=== PATIENT | female | born 1995 | race Caucasian/White ===

== ENCOUNTER 2022-10-08 11:49 | Emergency (ER) | payer OTHER, BC, SELFPAY ==
--- NOTE | ~2022-10-08 | XR_ITS ---
EXAMINATION: XR chest 1V 10/08/2022 13:02 INDICATION: Shortness of breath PROCEDURE: AP portable chest COMPARISON: No prior studies for comparison. FINDINGS: The lungs are clear. The cardiomediastinal silhouette is within normal limits. There are no pleural effusions. There is no pneumothorax suspected. IMPRESSION: 1: NO ACUTE CARDIOPULMONARY DISEASE. Reviewed, dictated and finalized at location A. [employer] LEAD
--- NOTE | 2022-10-08 11:51 | ECG_ITS ---
Measurements Intervals [place] Rate: 61 P: 21 [place]: 156 QRS: -7 QRSD: 83 T: 6 QT: 393 QTc: 398 Interpretive Statements SINUS RHYTHM RSR' IN V1 OR V2, PROBABLY NORMAL VARIANT LOW QRS VOLTAGE IN PRECORDIAL LEADS BORDERLINE T WAVE ABNORMALITY- INFERIOR LEADS BORDERLINE ECG NO PREVIOUS ECG AVAILABLE FOR COMPARISON Electronically Signed On 10-08-2022 15:06:43 HUMAN RESOURCES SPECIALIST by Sage Espinoza D.O.
[2022-10-08 12:30] VITALS: BP 134/88; PULSE 77; RESP 17; TEMP 36.6; O2SAT 100
--- NOTE | 2022-10-08 14:47 | ED.GENADULT ---
HPI - General Adult General Chief complaint: Shortness of Breath/Dyspnea Stated complaint: SOB/CP Time Seen by Provider: 10/08/22 13:25 Source: patient Mode of arrival: ambulatory Limitations: no limitations History of Present Illness HPI narrative: Patient is a 26-year-old female who presents to the ED with report of shortness of breath. Patient reports having shortness of breath for the past 4 days as well as tightness in her midsternal chest. She states the shortness of breath is occasionally aggravated with exertion, but not other times. Occasional pain with taking deep breath. She has a history of childhood asthma, but has not had any issues with this in numerous years. Never had chest pain like this before. Denies fever, chills, BLE pain or edema, palpitations, cough, congestion, rhinorrhea, nausea, vomiting. Review of Systems Review of Systems: CONSTITUTIONAL: Denies fever, chills, or sweats. ENT: Denies rhinorrhea, congestion, sore throat. CARDIOVASCULAR: Reports midsternal chest tightness. Denies palpitations or BLE edema. RESPIRATORY: Reports shortness of breath, occasional HERNANDEZ. Denies cough. GASTROINTESTINAL: Denies abdominal pain, nausea, vomiting, or diarrhea. MUSCULOSKELETAL: Denies BLE pain. All systems reviewed & are unremarkable except as noted in HPI and below PMFSH Past Medical History Medical History (Updated 10/08/22 @ 17:06 by Cici Lowe PA-C) History of asthma Surgical History Surgical History (Updated 10/08/22 @ 14:53 by Cici Lowe PA-C) History of tympanoplasty Social History Social History (Updated 10/08/22 @ 14:53 by Cici Lowe PA-C) Smoking status: Current every day smoker Tobacco type: e-cigarettes/vaping Exam Narrative: GENERAL: Well appearing, morbidly obese, non-toxic, in no acute distress. HEAD: Normocephalic, atraumatic. NECK: Supple. No adenopathy, no masses. RESPIRATORY: Airway patent, respirations nonlabored. Clear to auscultation bilaterally, no rales, rhonchi, wheezing. No focal lung sounds. No splinting. CARDIOVASCULAR: Regular rate and rhythm without murmurs, rubs, or gallops. Peripheral pulses 2+ and equal bilaterally. MUSCULOSKELETAL: Moves all extremities. Strength/ROM intact without gross deformities. No edema. No calf tenderness. SKIN: Warm, dry, normal color. No rashes. NEURO: A&O X3. Speech clear. Cranial nerves II-XII grossly intact. Steady gait. No ataxic movements. PSYCHIATRIC: Appropriate mood and affect. Normal interaction. Course Vital Signs Vital signs: Vital Signs Temperature 97.9 F 10/08/22 12:30 Pulse Rate 77 10/08/22 12:30 Respiratory Rate 17 10/08/22 12:30 Blood Pressure 134/88 10/08/22 12:30 Pulse Oximetry 100 10/08/22 12:30 Oxygen Delivery Room Air 10/08/22 12:30 Temperature 97.9 F 10/08/22 12:30 Pulse Rate 77 10/08/22 12:30 Respiratory Rate 17 10/08/22 12:30 Blood Pressure 134/88 10/08/22 12:30 Pulse Oximetry 100 10/08/22 12:30 Oxygen Delivery Room Air 10/08/22 12:30 Medical Decision Making [facility] Narrative Medical decision making narrative: Patient presented to ED with 4-day history of vague mild shortness of breath, no identifiable triggers. No recent URI sx's. Vitals stable upon arrival. Afebrile. No hypoxia. Clinical exam unremarkable. Chest x-ray without signs of pneumonia, pneumothorax, focal findings. EKG without ischemic changes. Troponin negative. D-dimer WNL, as well as PERC negative, doubt PE. Patient w/o wheezing on exam, lungs clear, no need for breathing Tx. No recent cough, congestion, sore throat, muscle aches, fever, nausea - did not test for COVID/flu. Discussed lab and imaging findings with patient and provided reassurance. Patient has a f/u appointment with her primary care doctor on Thursday. She will be discharged. Given strict reasons to return. She agrees with plan. Discharged in stable condition. Medical Records Medical records
[2022-10-08 15:47] LABS: Basophils Percent Auto 0.4 % (0.2-1.2); Eosinophils Absolute Auto 0.1 K/mm3 (0-0.3); Eosinophils Percent Auto 0.7 % (0-4.4); Hematocrit 45.3 % (37.0-47.0); Hemoglobin 15.1 g/dL (12.0-15.0); Immature Granulocyte Absolute 0.01 K/mm3 (0.00-0.031); Immature Granulocyte Percent A 0.1 % (0-0.5); Lymphocytes Absolute Auto 2.62 K/mm3 (0.9-3.2); Lymphocytes Percent Auto 31.8 % (18.3-44.2); Mean Corpuscular HGB Conc 33.3 g/dl (32-36); Mean Corpuscular Hemoglobin 30.5 pg (26-34); Mean Corpuscular Volume 91.5 fl (80-100); Mean Platelet Volume 9.8 fl (7.4-10.4); Monocytes Absolute Auto 0.5 K/mm3 (0.1-0.6); Monocytes Percent Auto 6.2 % (2.6-8.5); Neutrophils Percent Auto 60.8 % (45.5-73.1); Platelet Count Result 245 k/mm3 (150-375); Red Blood Count 4.95 M/mm3 (4.2-5.4); Red Cell Distribution Width 11.8 % (11.5-14.5); White Blood Count 8.2 K/mm3 (4.5-10.0)
[2022-10-08 15:57] LABS: Alanine Aminotransferase 49 U/L (6-35); Albumin Level 4.4 g/dL (3.5-5.1); Alkaline Phosphatase 55 U/L (38-126); Anion Gap 6 mmol/L (8-16); Aspartate Amino Transferase 43 U/L (14-36); Bilirubin,Total 0.5 mg/dL (0.2-1.3); Blood Urea Nitrogen 12 mg/dL (7-17); Calcium 8.7 mg/dL (8.4-10.2); Carbon Dioxide 27 mmol/L (22-30); Chloride 102 mmol/L (98-107); Estimated CRCL calculation 130 ml/min; Estimated Glomerular Filt Rate > 60; Glucose 83 mg/dL (65-110); Potassium 4.4 mmol/L (3.4-5.0); Sodium 135 mmol/L (137-145)
[2022-10-08 16:04] LABS: D Dimer < 0.27 ug/mL (<0.48)
[2022-10-08 16:09] LABS: Troponin I < 0.012 ng/mL (0.000-0.034)
[2022-10-08 17:25] VITALS: RESP 16
== END 2022-10-08 17:25 | disposition home or self-care (01) ==
PROVIDERS: Emergency Provider Physician Assistant
DX: R06.81 Apnea, not elsewhere classified (principal); R07.89 Other chest pain; Z72.0 Tobacco use; J45.909 Unspecified asthma, uncomplicated
CPT/HCPCS: 36415; 71045; 80053; 84484; 85025; 85380; 93005; 99284

== ENCOUNTER 2023-09-04 23:30 | Emergency (ER) | payer OTHER, SELFPAY ==
[2023-09-04 23:42] VITALS: BP 147/89; PULSE 84; TEMP 36.4; O2SAT 95
--- NOTE | 2023-09-04 23:54 | ED.GENADULT ---
[facility] - General Adult General Chief complaint: Ear Stated complaint: bleeding from ear Time Seen by Provider: 09/04/23 23:40 Source: patient Mode of arrival: ambulatory Limitations: no limitations History of Present Illness HPI narrative: This is a 27-year-old female who presents to the ED with chief complaint of right ear irritation and bleeding. Reports that tonight she noticed some scant blood draining from the right ear. Reports she has had a lot of dark wax recently. Reports that she recently used a camera to try to visualize the ear. She has history of tympanic membrane rupture in the past but does not feel any pain right now. Denies any hearing changes or tinnitus Related Data Allergies Allergy/AdvReac Type Severity Reaction Status Date / Time No Known Allergies Allergy Verified 09/04/23 23:33 Review of Systems Review of Systems: All systems as dictated in [facility] Past Medical History Medical History (Updated 09/05/23 @ 00:05 by Riky Valera PA-C) History of asthma Surgical History Surgical History (Updated 10/08/22 @ 14:53 by Cici Lowe PA-C) History of tympanoplasty Social History Social History (Updated 10/08/22 @ 14:53 by Cici Lowe PA-C) Smoking status: Current every day smoker Tobacco type: e-cigarettes/vaping Exam Narrative: GENERAL: Well-appearing, well-nourished, and in no acute distress. HEAD: Normocephalic, atraumatic. EYES: PERRLA and EOMI. ENT: Right external auditory canal with obvious inflammation. There is scant bloody discharge present. No purulent discharge present. The tympanic membrane is intact. Left ear is benign. Nares clear, no rhinorrhea or epistaxis. Mucous membranes moist. Oropharynx without tonsillar hypertrophy exudate or other lesions. NECK: Supple. No adenopathy or masses. CHEST: No respiratory distress. Clear to auscultation. No wheezes rales or rhonchi HEART: Regular rate and rhythm. No murmur heard. Normal peripheral pulses. ABDOMEN: Soft, nontender, nondistended, normal active bowel sounds. MSK: Normal range of motion. No edema. SKIN: Warm, dry, no rash. NEURO: Alert and oriented x3. No focal deficits. PSYCH: Normal mood and affect. Course Vital Signs Vital signs: Vital Signs Temperature 97.5 F L 09/04/23 23:42 Pulse Rate 84 09/04/23 23:42 Blood Pressure 147/89 H 09/04/23 23:42 Pulse Oximetry 95 09/04/23 23:42 Temperature 97.5 F L 09/04/23 23:42 Pulse Rate 84 09/04/23 23:42 Blood Pressure 147/89 H 09/04/23 23:42 Pulse Oximetry 95 09/04/23 23:42 Medical Decision Making [facility] Narrative Medical decision making narrative: This is a 27-year-old female with chief complaint of right ear irritation. Scant bloody discharge from the right external canal. Tympanic membrane is intact. Vitals are normal. Pain with insertion of the otoscope on exam. Symptoms consistent with otitis externa. Prescription for Ciprodex drops given. Pt will be discharged in stable condition. Return precautions given and supportive measures discussed. Pt is understanding and agreeable with plan for discharge and follow-up with PCP. Vital Signs Vital Signs: Vital Signs Temperature 97.5 F L 09/04/23 23:42 Pulse Rate 84 09/04/23 23:42 Blood Pressure 147/89 H 09/04/23 23:42 Pulse Oximetry 95 09/04/23 23:42 Temperature 97.5 F L 09/04/23 23:42 Pulse Rate 84 09/04/23 23:42 Blood Pressure 147/89 H 09/04/23 23:42 Pulse Oximetry 95 09/04/23 23:42 Discharge Plan Discharge Clinical Impression: Otitis externa Patient Disposition: Home, Self-Care Condition: Stable Instructions: Antibiotic Form Additional Instructions: Your exam today shows evidence of inflammation of the external ear canal. The eardrum is intact. Please take your eardrops for 1 week and follow-up with the ENT doctor. A referral has been given. If you have any new or worsening symptoms please re
== END 2023-09-05 00:25 | disposition home or self-care (01) ==
PROVIDERS: Emergency Provider Physician Assistant
DX: H60.91 Unspecified otitis externa, right ear (principal); F17.219 Nicotine dependence, cigarettes, with unspecified nicotine-induced disorders
CPT/HCPCS: 99283

== ENCOUNTER 2024-02-02 21:05 | Emergency (ER) | payer OTHER, SELFPAY ==
--- NOTE | ~2024-02-02 | XR_ITS ---
EXAMINATION: XR chest 1V portable INDICATION: Shortness of breath TECHNIQUE: Portable AP chest at 2146 hours COMPARISON: 10/08/2022 FINDINGS: The lung volumes are low. There are diffuse opacities throughout all lung zones. No pleural effusion or pneumothorax. The heart size is normal for technique. The visualized osseous structures are unremarkable. IMPRESSION: 1. Diffuse lung disease which could reflect pneumonia and/or pulmonary edema. Reviewed, dictated and finalized at location F.
[2024-02-02 21:07] VITALS: BP 150/103; PULSE 70; RESP 16; TEMP 37; O2SAT 100
[2024-02-02 21:56] LABS: Basophils Percent Auto 0.3 % (0.2-1.2); Eosinophils Percent Auto 0.3 % (0-4.4); Hematocrit 48.1 % (37.0-47.0); Immature Granulocyte Absolute 0.04 K/mm3 (0.00-0.031); Immature Granulocyte Percent A 0.3 % (0-0.5); Lymphocytes Absolute Auto 3.68 K/mm3 (0.9-3.2); Lymphocytes Percent Auto 31.5 % (18.3-44.2); Mean Corpuscular HGB Conc 33.3 g/dl (32-36); Mean Corpuscular Hemoglobin 30.1 pg (26-34); Mean Corpuscular Volume 90.6 fl (80-100); Mean Platelet Volume 9.8 fl (7.4-10.4); Monocytes Absolute Auto 0.7 K/mm3 (0.1-0.6); Monocytes Percent Auto 6.3 % (2.6-8.5); Neutrophils Absolute Auto 7.2 K/mm3 (1.3-6.7); Neutrophils Percent Auto 61.3 % (45.5-73.1); Platelet Count Result 286 k/mm3 (150-375); Red Blood Count 5.31 M/mm3 (4.2-5.4); Red Cell Distribution Width 11.4 % (11.5-14.5); White Blood Count 11.7 K/mm3 (4.5-10.0)
--- NOTE | 2024-02-02 22:04 | PC.NURSE ---
This RN entered room to start IV and administer fluids. Pt refused IV access and fluids, stating I just came here for my breathing, I dont think I need all of that . CHAKA Reyes notified.
[2024-02-02 22:06] LABS: Alanine Aminotransferase 50 U/L (6-35); Albumin Level 4.8 g/dL (3.5-5.1); Alkaline Phosphatase 61 U/L (38-126); Anion Gap 7 mmol/L (4-12); Aspartate Amino Transferase 47 U/L (14-36); Bilirubin,Total 0.4 mg/dL (0.2-1.3); Blood Urea Nitrogen 14 mg/dL (7-17); Calcium 9.9 mg/dL (8.4-10.2); Carbon Dioxide 29 mmol/L (22-30); Chloride 100 mmol/L (98-107); Estimated CRCL calculation 129 ml/min; Estimated Glomerular Filt Rate > 60; Glucose 90 mg/dL (65-110); Potassium 4.3 mmol/L (3.4-5.0); Sodium 136 mmol/L (137-145)
--- NOTE | 2024-02-02 22:21 | ED.SOB ---
HPI - SOB/Dyspnea General Chief Complaint: Shortness of Breath/Dyspnea Stated Complaint: sob and chest pain Time Seen by Provider: 02/02/24 21:20 History of Present Illness HPI Narrative: Patient is a 28-year-old female who presents to the emergency department this evening complaining of shortness of breath. Patient states that she has been having this shortness of breath since Thursday. She states that her boyfriend made dinner that night and the lab he cooked was extremely salty but she aided any ways to to not wanting to hurt his feelings. Patient states that she had some cheesecake as well and while she was eating and did choke on it. She denies any significant past medical history and denies any history of cardiovascular disease. Patient admits to a history of asthma but states that this does not feel like her asthma her albuterol inhaler did not help with the shortness of breath. She is currently denying any current sharp stabbing chest pain, denies any nausea or vomiting, any fevers or chills at home, any abdominal pain, dysuria or hematuria. There are no other modifying, alleviating, or precipitating factors at this time. Related Data Allergies Allergy/AdvReac Type Severity Reaction Status Date / Time No Known Allergies Allergy Verified 02/02/24 21:06 Review of Systems Review of Systems: All systems are reviewed and are negative unless stated otherwise in the HPI. [facility] Past Medical History Medical History History of asthma Surgical History Surgical History History of tympanoplasty Social History Social History Smoking status: Current every day smoker Tobacco type: e-cigarettes/vaping Exam Narrative: General: Alert, awake, afebrile, in no acute distress. HEENT: PERRL, no rhinorrhea, no post nasal drip, oropharynx clear. Neck: Trachea midline, no JVD, no lymphadenopathy. Cardiovascular: Regular rate and rhythm, no murmurs, rubs or gallops, no peripheral edema. Respiratory: Clear to auscultation bilaterally, no tachypnea, no wheezing, no rhonchi, no rubs, no respiratory distress. Abdomen: Soft, nontender, nondistended, no rebound, no guarding, no peritoneal signs. Musculoskeletal: No joint swelling or deformity, normal muscle tone. Skin: No rashes or petechia, no signs of infection. Psychiatric: Alert and oriented, normal behavior and judgment for situation. Neurological: Alert and oriented to person, place, and time. Follows all commands. No focal deficits, speech is clear and fluent. Course Vital Signs Vital signs: Vital Signs Temperature 98.6 F 02/02/24 21:07 Pulse Rate 70 02/02/24 21:07 Respiratory Rate 16 02/02/24 21:07 Blood Pressure 150/103 H 02/02/24 21:07 Pulse Oximetry 100 02/02/24 21:07 Oxygen Delivery Room Air 02/02/24 21:07 Temperature 98.6 F 02/02/24 21:07 Pulse Rate 69 02/02/24 23:33 Respiratory Rate 17 02/02/24 23:33 Blood Pressure 147/89 H 02/02/24 23:33 Pulse Oximetry 100 02/02/24 23:33 Oxygen Delivery Room Air 02/02/24 22:29 MDM - SOB/Dyspnea MDM Narrative Medical decision making narrative: The patient was evaluated by myself in the emergency department. History is obtained from patient who is an independent historian and physical exam was performed. External medical records were reviewed at this time. IV was established and pertinent tests were ordered. Laboratory results obtained revealing a white blood cell count of 11.7, AST of 47, ALT of 50 otherwise unremarkable. Imaging studies obtained included CXR which was independently interpreted by me revealing diffuse opacities consistent with pneumonia versus pulmonary edema, which is pending final radiology interpretation. Differential diagnosis considerations include acute viral syndrome including COVID/influe
[2024-02-02 22:29] VITALS: O2SAT 99
[2024-02-02 22:35] LABS: Influenza A QL RT-PCR Negative (Negative); Influenza B QL RT-PCR Negative (Negative); RSV RNA, RT-PCR Negative (Negative); SARS-CoV-2 RNA PCR Negative (Negative)
[2024-02-02 22:47] LABS: NT Pro B Type Natriuretic Pept 109 pg/mL (19.9-100); Troponin I < 0.012 ng/mL (0.000-0.034)
[2024-02-02 23:33] VITALS: BP 147/89; PULSE 69; RESP 17; O2SAT 100
== END 2024-02-02 23:34 | disposition home or self-care (01) ==
PROVIDERS: Emergency Provider Emergency Medicine
DX: J18.9 Pneumonia, unspecified organism (principal); R06.02 Shortness of breath; Z20.822 Contact with and (suspected) exposure to COVID-19; J45.909 Unspecified asthma, uncomplicated
CPT/HCPCS: 36415; 71045; 80053; 83880; 84484; 85025; 87637; 99284

== ENCOUNTER 2024-04-13 11:38 | Emergency (ER) | payer OTHER, SELFPAY ==
--- NOTE | ~2024-04-13 | XR_ITS ---
EXAMINATION: XR chest 2V DATE: 04/13/2024 12:08 INDICATION: Palpitations. Nonspecific chest pain. TECHNIQUE: Frontal and lateral views of the chest were obtained. COMPARISON: Chest single view 02/02/2024 FINDINGS: There is no pneumonia, pleural effusion, or pneumothorax. The heart size is normal. IMPRESSION: 1. No acute cardiopulmonary disease. Reviewed, dictated and finalized at location A.
--- NOTE | 2024-04-13 11:42 | ECG_ITS ---
[facility] [address] Test Date: 2024-04-13 Pat Name: Kristen Jamil Department: Room: Gender: F Chemists: : 1995 Requested By: Cruzito Patel Order Number: [id number] Dahiana MD: Twila Tamez M.D. Measurements Intervals [place] Rate: 85 P: 24 [place]: 157 QRS: -13 QRSD: 85 T: 4 QT: 356 QTc: 424 Interpretive Statements SINUS RHYTHM No previous ECG available for comparison Electronically Signed On 04-13-2024 14:16:12 CDT by Twila Tamez M.D.
[2024-04-13 11:43] VITALS: BP 149/89; PULSE 87; RESP 20; TEMP 36.4; O2SAT 100
[2024-04-13 11:51] VITALS: PULSE 82
--- NOTE | 2024-04-13 11:54 | ED.ARRPALP ---
HPI - Arrhythmia/Palpitations General Chief Complaint: Arrhythmia/Palpitations Stated Complaint: SOB, heart palpitations Time Seen by Provider: 04/13/24 11:44 History of Present Illness HPI narrative: 28-year-old morbidly obese female history of hypothyroidism recently started on Monurol for weight loss presents to the emergency room for evaluation of palpitations. Patient states she has been experiencing 4-5 minutes of palpitations once daily for the last 4 days. States the palpitations normally occur when she is active. Patient states that she does not snore or has been told she has sleep apnea. Patient denies any chest pain or shortness of breath. Denies dizziness or lightheadedness. Denies nausea vomiting. Denies fevers. Denies of adjusting energy drinks. No recreational drug use except for marijuana. It is not ingest EtOH. Related Data Allergies Allergy/AdvReac Type Severity Reaction Status Date / Time doxycycline Allergy Rash Verified 04/13/24 11:58 Review of Systems Review of Systems: ROS unremarkable except for noted in HPI. [facility] Past Medical History Medical History History of asthma Surgical History Surgical History History of tympanoplasty Social History Social History Smoking status: Current every day smoker Tobacco type: e-cigarettes/vaping Exam Narrative: GENERAL: Well-appearing, well-nourished, no physical limitations, and in no acute distress. HEAD: Normocephalic, atraumatic. EYES: Conjunctivae normal, PERRLA and EOMI. CHEST: Clear to auscultation. No respiratory distress. No wheezes rales or rhonchi. HEART: Regular rate and rhythm. No murmur heard. Normal peripheral pulses. EXTREMITIES: Normal range of motion. No edema. No clubbing or cyanosis SKIN: Warm, dry, no rash. No noted wounds NEURO: No focal deficits. Alert and oriented x3. MAEW. CN's II-XI intact bilaterally, normal gait PSYCH: Cooperative. Normal mood and affect. Course Vital Signs Vital signs: Vital Signs Temperature 36.4 C 04/13/24 11:43 Pulse Rate 87 04/13/24 11:43 Respiratory Rate 20 04/13/24 11:43 Blood Pressure 149/89 H 04/13/24 11:43 Pulse Oximetry 100 04/13/24 11:43 Oxygen Delivery Room Air 04/13/24 11:43 Temperature 36.4 C 04/13/24 11:43 Pulse Rate 76 04/13/24 14:22 Respiratory Rate 20 04/13/24 14:22 Blood Pressure 129/71 04/13/24 14:08 Pulse Oximetry 100 04/13/24 14:08 Oxygen Delivery Room Air 04/13/24 11:50 MDM - Arrhythmia/Palpitations MDM Narrative Medical decision making narrative: 28-year-old female who is morbidly obese history of anxiety who is currently on Medrol for weight loss presented with the palpitations. Exam showed no evidence of volume overload. EKG showed no signs of acute ischemia. Single adult troponins were negative presentation not consistent with a P, D-dimer was negative chest x-ray shows a cardiopulmonary disease. Heart score is 0. Will have patient follow-up with Cardiology and primary care. Cause palpitations and epigastric tenderness could be due to her mounjaro. Lab Data 04/13/24 11:56 04/13/24 11:56 Labs: Lab Results 04/13/24 04/13/24 04/13/24 Range/Units 11:56 11:56 13:14 WBC 9.6 (4.5-10.0) K/mm3 RBC 5.40 (4.2-5.4) M/mm3 Hgb 16.3 H (12.0-15.0) g/dL Hct 48.4 H (37.0-47.0) % MCV 89.6 (80-100) fl MCH 30.2 (26-34) pg MCHC 33.7 (32-36) g/dl RDW 11.4 L (11.5-14.5) % Plt Count 297 (150-375) k/mm3 MPV 10.0 (7.4-10.4) fl Immature Gran % (Auto) 0.2 (0-0.5) % Neut % (Auto) 56.6 (45.5-73.1) % Lymph % (Auto) 34.3 (18.3-44.2) % [place] % (Auto) 8.1 (2.6-8.5) % Eos % (Auto) 0.4 (0-4.4) % Baso % (Auto) 0.4 (0.2-1.2) % Lymph # (Auto) 3.28 H (0.
[2024-04-13 12:03] LABS: Basophils Percent Auto 0.4 % (0.2-1.2); Eosinophils Percent Auto 0.4 % (0-4.4); Hematocrit 48.4 % (37.0-47.0); Hemoglobin 16.3 g/dL (12.0-15.0); Immature Granulocyte Absolute 0.02 K/mm3 (0.00-0.031); Immature Granulocyte Percent A 0.2 % (0-0.5); Lymphocytes Absolute Auto 3.28 K/mm3 (0.9-3.2); Lymphocytes Percent Auto 34.3 % (18.3-44.2); Mean Corpuscular HGB Conc 33.7 g/dl (32-36); Mean Corpuscular Hemoglobin 30.2 pg (26-34); Mean Corpuscular Volume 89.6 fl (80-100); Monocytes Absolute Auto 0.8 K/mm3 (0.1-0.6); Monocytes Percent Auto 8.1 % (2.6-8.5); Neutrophils Absolute Auto 5.4 K/mm3 (1.3-6.7); Neutrophils Percent Auto 56.6 % (45.5-73.1); Platelet Count Result 297 k/mm3 (150-375); Red Cell Distribution Width 11.4 % (11.5-14.5); White Blood Count 9.6 K/mm3 (4.5-10.0)
[2024-04-13 12:14] LABS: Alanine Aminotransferase 37 U/L (6-35); Albumin Level 4.6 g/dL (3.5-5.1); Alkaline Phosphatase 56 U/L (38-126); Anion Gap 9 mmol/L (4-12); Aspartate Amino Transferase 34 U/L (14-36); Bilirubin,Total 0.7 mg/dL (0.2-1.3); Blood Urea Nitrogen 14 mg/dL (7-17); Calcium 9.2 mg/dL (8.4-10.2); Carbon Dioxide 25 mmol/L (22-30); Chloride 103 mmol/L (98-107); Estimated CRCL calculation 106 ml/min; Estimated Glomerular Filt Rate > 60; Glucose 95 mg/dL (65-110); Lipase 66 U/L (23-300); Potassium 4.2 mmol/L (3.4-5.0); Sodium 137 mmol/L (137-145)
[2024-04-13 12:20] LABS: Prothrombin Time 13.8 Seconds (11.1-14.7)
[2024-04-13 12:21] LABS: Partial Thromboplastin Time 32.8 Seconds (22.3-36.8)
[2024-04-13 12:23] LABS: D Dimer < 0.27 ug/mL (<0.48)
[2024-04-13 12:25] LABS: Troponin I < 0.012 ng/mL (0.000-0.034)
[2024-04-13 13:22] LABS: Magnesium 2.2 mg/dL (1.6-2.3)
[2024-04-13 13:56] LABS: Benzodiazepines Screen Urine Negative (Negative)
[2024-04-13 14:02] LABS: Amphetamine Screen Urine Negative (Negative); Cannabinoid Screen Urine Positive (Negative); Cocaine Screen Urine Negative (Negative); Methadone Screen Urine Negative (Negative); Opiate Screen Urine Negative (Negative); Phencyclidine Screen Urine Negative (Negative)
[2024-04-13 14:08] VITALS: BP 129/71; PULSE 71; RESP 18; O2SAT 100
[2024-04-13] MEDS: IPRATROPIUM 0.5 MG/ALBUTEROL SULFATE 2.5 MG AMPUL.NEB 3 ML INHALATION (14:11)
[2024-04-13 14:12] VITALS: PULSE 67; RESP 20
[2024-04-13 14:22] VITALS: PULSE 76; RESP 20
[2024-04-13 15:04] VITALS: BP 133/98; PULSE 80; RESP 17; O2SAT 99
[2024-04-13 15:26] LABS: Barbiturate Screen Urine Negative (Negative)
== END 2024-04-13 15:06 | disposition home or self-care (01) ==
PROVIDERS: Emergency Medicine; Emergency Provider Nurse Practitioner Family; PCP Family Medicine
DX: R00.2 Palpitations (principal); J45.909 Unspecified asthma, uncomplicated; E03.9 Hypothyroidism, unspecified; E66.01 Morbid (severe) obesity due to excess calories; Z68.42 Body mass index [BMI] 45.0-49.9, adult; F17.290 Nicotine dependence, other tobacco product, uncomplicated
CPT/HCPCS: 36415; 71046; 80053; 80307; 83690; 83735; 84443; 84484; 85025; 85380; 85610; 85730; 93005; 94640; 99284

== ENCOUNTER 2024-07-13 09:49 | Emergency (ER) | payer OTHER, SELFPAY ==
--- NOTE | ~2024-07-13 | CT_ITS ---
EXAMINATION: CT abdomen pelvis wo con DATE: 07/13/2024 14:07 INDICATION: Left lower quadrant abdominal pain TECHNIQUE: Computed tomography (CT) of the abdomen and pelvis was performed without intravenous contr ast. Automated exposure control and iterative reconstruction technique were employed. The dose-length product was 1631.15 mGy-cm. COMPARISON: None FINDINGS: Lung bases are clear. Heart size is normal. No pericardial or pleural effusion. Diffuse hepatic steat osis with focal sparing along the gallbladder fossa and jorge alberto hepatis and more prominent focal fat at the ligamentum teres. Spleen, pancreas, bilateral adrenal glands are normal. Bilateral nonobstructin g nephrolithiasis with 3 mm stone in upper pole calyx of the right kidney and one-centimeters stone i n upper pole calyx of the left kidney. No ureteral stones or hydronephrosis. Bowels including the magda endix are normal. Bladder, anteverted uterus and bilateral adnexa are unremarkable. Tiny amount of li roopa physiologic free fluid in the cul-de-sac. No abscess or free intraperineal gas. No pathologicall y enlarged abdominal or pelvic lymphadenopathy. Bones are unremarkable. IMPRESSION: 1. Bilateral nonobstructing nephrolithiasis. No ureteral stones or other acute intra-abdominal/pelvic process. Reviewed, dictated and finalized at location A.
--- NOTE | ~2024-07-13 | US_ITS ---
EXAMINATION: US pelvic complete w TV DATE: 07/13/2024 11:59 INDICATION: 2-3 days of left pelvic pain TECHNIQUE: Multiple transabdominal and endovaginal sonographic images of the pelvis were obtained. COMPARISON: None. FINDINGS: The uterus measures 7.4 x 3.6 x 4.5 cm. The endometrial complex measures 11 mm in thickness with 3 m m anechoic cyst in the anterior myometrium. There are a few anechoic nabothian cysts at the cervix th e largest measuring up to 5 mm in maximal diameter. The right ovary measures 2.0 x 1.6 x 1.6 cm. The left ovary measures 1.8 x 1.5 x 1.4 cm. Vascular flow identified in both ovaries on color Doppler. Th ere is trace amount of likely physiologic anechoic free fluid in the pelvis. IMPRESSION: 1. Unremarkable pelvic ultrasound. Reviewed, dictated and finalized at location A.
[2024-07-13 09:52] VITALS: BP 129/86; PULSE 74; RESP 16; TEMP 36.4; O2SAT 100
--- NOTE | 2024-07-13 10:01 | PC.NURSE ---
pt wanting to wait for provider to see her first before getting IV and blood work.
--- NOTE | 2024-07-13 10:39 | PC.NURSE ---
pt refusing blood work/IV. EDP made aware.
--- NOTE | 2024-07-13 10:47 | ED.ABDPAIN ---
HPI - Abdominal Pain General Chief Complaint: Abdominal Pain Stated Complaint: abd pain Time Seen by Provider: 07/13/24 09:58 History of Present Illness HPI narrative: Patient presents with concerned her pain to her left lower abdomen, has been ongoing for 2-3 days, better with some Aleve, no nausea vomiting or diarrhea or constipation. Wants to make sure intestines are okay. No dysuria symptoms, no vaginal discharge Related Data Allergies Allergy/AdvReac Type Severity Reaction Status Date / Time doxycycline Allergy Rash Verified 04/13/24 11:58 Review of Systems Review of Systems: All systems reviewed & are unremarkable except as noted in HPI and below PMFSH Past Medical History Medical History History of asthma Surgical History Surgical History History of tympanoplasty Social History Social History Smoking status: Current every day smoker Tobacco type: e-cigarettes/vaping Exam Narrative: EXAMINATION OF ORGAN SYSTEMS/BODY AREAS: Constitutional: Vital signs per nursing GENERAL:[No acute distress, non-toxic appearing.] HEAD: Normal with no signs of head trauma. EYES: EOMI, conjunctiva normal ENT: Hearing grossly intact LUNGS: Nonlabored breathing. HEART: [Regular rate and rhythm] ABD: [Soft], [nontender to palpation] EXT: Normal range of motion SKIN: [No rashes or lesions.] NEURO: [Alert and oriented x 3. No gross focal sensory or strength deficits.] PSYCH: Normal affect Course Vital Signs Vital signs: Vital Signs Temperature 97.6 F 07/13/24 09:52 Pulse Rate 74 07/13/24 09:52 Respiratory Rate 16 07/13/24 09:52 Blood Pressure 129/86 07/13/24 09:52 Pulse Oximetry 100 07/13/24 09:52 Oxygen Delivery Room Air 07/13/24 09:52 Temperature 97.6 F 07/13/24 09:52 Pulse Rate 84 07/13/24 16:15 Respiratory Rate 14 07/13/24 16:15 Blood Pressure 136/84 07/13/24 16:15 Pulse Oximetry 99 07/13/24 16:15 Oxygen Delivery Room Air 07/13/24 09:52 MDM - Abdominal Pain MDM Narrative Medical decision making narrative: Electronic medical record was reviewed. Patient presented to the ED with complaint of [abdominal pain]. Vitals [were within acceptable limits]. Physical exam revealed soft abdomen without significant tenderness. Based on the patient's history and physical exam, my differential includes but is not limited to [gastritis, gastroenteritis, MSK, ovarian cyst]. Patient given Toradol for pain. Urinalysis with some wbc's and bacteria. The pelvic ultrasound without any obvious abnormalities, CT abdomen without any obvious abnormalities. On reevaluation, the patient states that they are feeling much better. There were no witnessed episodes of vomiting in the emergency department. They are not complaining of any new abdominal pain. Repeat examination did not show any significant guarding or rebound. No new tenderness. At this time I do not feel there is any further emergent treatment to be provided. The patient was given strict return precautions, if they are to develop any worsening abdominal pain, vomiting, or blood in the vomit they are to return to the emergency department immediately. Patient verbally acknowledges understanding these directions. [The patient was informed of the above diagnostic test findings.] No further workup is necessary at this time. They were advised to follow-up with [their PCP] in 2 days. The patient feels that this is appropriate medical decision making and verbalizes an understanding of the discharge instructions. Lab Data Labs: Lab Results 07/13/24 07/13/24 Range/Units 11:19 11:26 Urine Color Yellow (Yellow) Urine Appearance Clear (Clear) Urine pH 5.5 (5.0-9.0) Ur Specific [place] 1.033 (1.001-1.035) Urine Protein Trace (Negative) mg/dL
[2024-07-13 11:30] LABS: BEDSIDEPREGUCG Negative
[2024-07-13 11:47] LABS: Add Urine Microscopic? YES; Appearance Urine Clear (Clear); Bacteria Urine 1+ /hpf; Bilirubin Urine Negative (Negative); Blood Urine Negative (Negative); Color Urine Yellow (Yellow); Glucose Urine UA Negative (Negative); Ketones Urine Trace mg/dL (Negative); Leukocyte Esterase Ur Negative LEU/UL (Negative); Need Manual Microscopic Reviewed; Nitrate Urine Negative (Negative); Non Pathogenic Casts 0-2; Protein Urine Trace mg/dL (Negative); Specific Grav Ur 1.033 (1.001-1.035); Squamous Epithelial Cell Urine Few /hpf (Few); Urobilinogen Urine 0.2 mg/dL (<2.0); pH Urine 5.5 (5.0-9.0)
[2024-07-13 11:48] LABS: RBC Urine 0-2 /hpf (0-2)
[2024-07-13] MEDS: KETOROLAC 10 MG TABLET PO (13:58)
[2024-07-13 16:15] VITALS: BP 136/84; PULSE 84; RESP 14; O2SAT 99
== END 2024-07-13 16:16 | disposition home or self-care (01) ==
PROVIDERS: Emergency Provider Emergency Medicine; PCP Family Medicine
DX: R10.32 Left lower quadrant pain (principal); J45.909 Unspecified asthma, uncomplicated; F17.290 Nicotine dependence, other tobacco product, uncomplicated
CPT/HCPCS: 74176; 76830; 76856; 81001; 81025; 87086; 99284; A9270

== ENCOUNTER 2025-04-02 09:32 | Emergency (ER) | payer OTHER, SELFPAY ==
--- NOTE | ~2025-04-02 | CT_ITS ---
CLINICAL INDICATION: Right flank pain COMPARISON: 07/13/2024. TECHNIQUE: Multiple contiguous axial images of the abdomen and pelvis were performed without the admi nistration of intravenous contrast The dose-length product (DLP) was 597.95 mGy-cm. Automated exposure control and iterative reconstruction technique were employed. FINDINGS/OBSERVATIONS: Visualized lower thorax: The bilateral lung bases are clear. The heart is of normal size, without pericardial effusion. Small hiatal hernia is present. Liver: The liver demonstrates homogeneous attenuation and is not enlarged. Gallbladder and biliary system: The gallbladder is only minimally distended, and otherwise unremarkable. Pancreas: Limited evaluation of the pancreas secondary to the lack of intravenous contrast. Spleen: The spleen demonstrates homogeneous attenuation and is not enlarged. Kidneys: Global enlargement of the right kidney with hydroureteronephrosis extending into the distal right ureter/right UVJ where a 4 mm calculus is present. Nonobstructing 5 mm calculus within the upper pole of the left kidney. The remainder of the left kidn ey is otherwise unremarkable, as is the left ureter. Adrenal glands: Unremarkable. Gastrointestinal tract: Fecal stasis within the colon. Appendix: The appendix is not definitively visualized. However, no pericecal inflammatory change is identified suggest the presence of acute appendicitis. Vasculature: Unremarkable. Lymph nodes: Limited evaluation without intravenous contrast. Pelvic structures: The bladder is decompressed, limiting its evaluation. The uterus is anteverted and anteflexed, and otherwise unremarkable. Body wall and musculoskeletal: Small fat-containing umbilical hernia. No significant degenerative disease within the lower thoracic or lumbosacral spine. IMPRESSION: Right-sided hydroureteronephrosis secondary to a 4 mm calculus at the level of the distal right urete r/right UVJ. Nonobstructing calculus within the upper pole of the left kidney. Reviewed, dictated and finalized at location A. IMPRESSION: Right-sided hydroureteronephrosis secondary to a 4 mm calculus at the level of the distal right ureter/right UVJ. Nonobstructing calculus within the upper pole of the left kidney.
--- OUTSIDE RECORDS SUMMARY | 2025-04-02 09:34 | XMS_ITS | Referral Summary ---
Author Organization [facility] Address [address] [place] [address] Care Team Providers Care Bundle Collector Name Role Phone Suhas Jerry DO Primary Care Provider + Allergies Active Allergy Reactions Criticality Noted Date Comments Cat Dander Hives Medium 01/17/2021 Doxycycline Rash Medium 02/17/2024 Medications budesonide-glyco pyr-formoterol (Breztri Aerosphere) 160-9-4.8 mcg/actuation inhalerIndicatio ns:Acute recurrent sinusitis, unspecified location Inhale 1 puff 2 (two) times a day 5.9 g Active Additional Information Patient not taking.Reported on 08/24/2024 levothyroxine (SYNTHROID) 50 mcg tabletIndication s:Hypothyroidism , unspecified type Take 1 tablet (50 mcg total) by mouth teacher education instructor before breakfast 90 tablet 3 4 Active ergocalciferol (Vitamin D2) 50,000 unit capsuleIndicatio ns:Vitamin D deficiency Take 1 capsule (50,000 Units total) by mouth once a week 4 capsule 4 4 Active Additional Information Patient not taking.Reported on 08/24/2024 tirzepatide (MOUNJARO SUBQ) Inject 2.5 Units under the skin once a week 2.5-5 units weekly Active albuterol-budeso nide 90-80 mcg/actuation HFA aerosol inhaler Inhale Active Active Problems Problem Noted Date Diagnosed Date Mild intermittent asthma without complication Elevated LFTs 10/13/2022 Foot sprain, left, initial encounter 05/06/2021 Abdominal pain 03/28/2021 Assessment & Plan (03/28/2021 4:34 PM CDT): - normal exam - pt reassured - if sx continue next week will consider CT scan vs trial of antispasmotic Nausea 03/28/2021 Assessment & Plan (03/28/2021 4:35 PM CDT): - viral gastroenteritis possible, can't r/o since off OCP - will check Hcg - zofran for nausea - f/u next week if sx continue Class 3 severe obesity due t o excess calories without serious comorbidity with body mass index (BMI) of 45.0 to 49.9 in adult 03/28/2021 Chronic diarrhea 01/17/2021 Pain of foot 10/19/2017 History of surgical procedure 10/01/2016 Dysfunction of eustachian tube 10/01/2016 Perforation of ear drum 05/24/2015 Immunizations Immunization Administration Dates Next Due Influenza, Unspecified 08/18/2024(Deferr ed: Patient Refused),08/15/2024(Deferred: Patient decision),09/09/2023(Deferred: Patient Refused),08/15/2023(Deferred: Patient decision),09/13/2022(Deferred: Patient Refused),09/12/2021(Deferred: Patient Refused) Tdap 12/10/2014 Social History Tobacco Use Types Packs/Day Years Used Date Smoking Tobacco: Former Vaping Q uit: 11/07/2022 Smokeless Tobacco: Never Tobacco Cessation:Counseling Given: Not Answered Alcohol Use Standard Drinks/Week Comments Yes 0 (1 standard drink = 0.6 oz pur e alcohol) AUDIT-C Answer Date Recorded Q1: How often do you have a drink containing alc ohol? 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 Not on file Last Filed Vital Signs Vital Sign Reading Time Taken Comments Blood Pressure 120/80 08/24/2024 12:49 PM CDT Pulse 82 08/24/2024 12:49 PM CDT Temperature 36.2 C (97.2 F) 08/24/2024 12:49 PM CDT Respiratory Rate 16 08/24/2024 12:49 PM CDT Oxygen Saturation 97% 08/24/2024 12:49 PM CDT Inhaled Oxygen Concentration - - Weight 119.7 kg (264 lb) 08/24/2024 12:49 PM CDT Height 168.9 cm (5' 6.5 ) 08/24/2024 12:49 PM CD T Body Mass Index 41.97 08/24/2024 12:49 PM CDT Plan of Treatment Not on file Procedures Procedure Name Priority Date/Time Associated Diagnosis Comments PAP WITH REFLEX TO HIGH RISK HPV Routine 04/22/2024 2:25 PM CDT Screening for malignant neoplasm of the cervix HEPATITIS C ANTIBODY Routine 02/17/2024 8:46 AM CDT Acute recurrent sinusitis, unspecified location Annual physical exam Morbid obesity with BMI of 40.0-44.9, adult (HCC) Mild intermittent asthma without complication from Last 3 Months or Most Recently Relevant to Health Maintenance Results * Pap with reflex to High Risk HPV and Genotyping (Cytology Component) (04/22/2024 2:25 PM CDT) Endocervical (Pap test) 04/22/2024 2:25 PM CDT 04/22/2024 2:25 PM CDT Narrative PATHOLOGY CH - 04/27/2024 2:26 PM CDT [facility] Department of Pathology [address] [place] [address] Final Report Note to Patients: This report may contain a detailed description of human tissue sent by a health care provider to the laboratory for pathologic evaluation. The content of this report is essential for diagnosis and may provide important critical findings. This information may be unfamiliar to patients to review without a medical professional present. It is advised that the patient review this report in the presence of a health care provider who can answer questions and explain the details. Patient Name: GENET MAYO Address: [address] [place] [address], [place] [address] Gender: F : 1995 (Age: 28) Service: Location: N : [id number] [facility] #: [id number] Patient Type: AMH SPECIMEN Taken: 04/22/2024 Received: 04/22/2024 Accessioned:: 04/25/2024 Reported: 04/27/2024 Physician(s): MD Cici Max MD Diagnosis: SOURCE OF SPECIMEN Imaged Thinprep Pap Test w/ Reflex HPV - Intake Clinician Cytologic Material: STATEMENT OF ADEQUACY - Satisfactory for evaluation; endocervical/transformation zone component present GENERAL CATEGORIZATION: - Negative for intraepithelial lesion or malignancy TAMMY Bartlett(ASCP) Report Electronically Reviewed and Signed Out By TAMMY Bartlett(ASCP) 04/27/2024 14:26:33Specimen(s) Received: A: Imaged Thinprep Pap Test w/ Reflex HPV - Intake Clinician Cytologic Material Clinical History: Last Menstrual Period: 04/18/2024 Menstrual History: Previous Negative Pap: 2020 The Pap test is a screening test used to aid in the detection of cervical cancer and its precursors. It should not be the sole means by which malignant and premalignant lesions are diagnosed. Both false negative and false positive results may occur. It also has poor sensitivity for the detection of endometrial lesions and should not be used to evaluate suspected endometrial abnormalities. For these reasons it is most important to obtain Pap tests at regular intervals. The performance characteristics of some immunohistochemical stains, fluorescence in-situ hybridization tests and immunophenotyping by flow cytometry cited in this report (if any) were determined by the Surgical Pathology Department at [facility] as part of an ongoing director of quality control program and in compliance with federally mandated regulations drawn from the Clinical Laboratory Improvement Act of 1988 (CLIA '88). Some of these tests rely on the use of analyte specific reagents and are subject to specific labeling requirements by the US Food and Drug Administration. Such diagnostic tests may only be performed in a facility that is certified by the Department of Health and Human Services as a high complexity laboratory under CLIA '88. The FDA has determined that such clearance or approval is not necessary. This test is used for clinical purposes. It should not be regarded as investigational or for research. Nevertheless, federal rules concerning the medical use of analyte specific reagents require that the following disclaimer be attached to the report: This test was developed and its performance characteristics determined by the Surgical Pathology Department [facility]. It has not been cleared or approved by the U. S. Food and Drug Administration. Cici Manzo MD LAB CYTOLOGY ORDERABL ES Final Result PATHOLOGY [address] [place] [address] * Hepatitis C antibody Blood (02/17/2024 8:46 AM CDT) Hep C Ab Nonreactive Nonreactive Comment: Antibodies to HCV not detected. Does NOT exclude the possibility of recent exposure to HCV. Current interpretive data was last revised on 22 Interpretive Data Nonreactive: Antibodies to HCV not detected. Does NOT exclude the possibility of recent exposure to HCV. Equivocal: Equivocal for HCV antibodies. Supplemental molecular testing will be automatically performed to determine infection status in accordance with current CDC screening recommendations. Reactive: Positive for HCV antibodies. This may represent current or past HCV infection. Supplemental molecular testing will be automatically performed to determine current infection status in accordance with current CDC screening recommendations. Interpretive data was last revised on 2020. Blood 02/17/2024 8:46 AM CDT 02/17/2024 10:35 AM CDT Suhas Jerry DO LAB MICROBIOLOGY - GENER AL ORDERABLES Final Result ANA [address] [facility] Department of Laboratories [place], [place] [id number] from Last 3 Months or Most Recently Relevant to Health Maintenance Insurance [facility] Care Teams Bundle Collector Relationship Specialty Start Date End Date Suhas Jerry DO [address] [place] [id number] PCP - General Family Medicine 01/17/21
--- OUTSIDE RECORDS SUMMARY | 2025-04-02 09:34 | XMS_ITS | Clinical Summary ---
Author Organization [facility] Address [address] [place] [address] Care Team Providers Care Food Processing Scientist Name Role Phone Suhas Jerry DO Primary [...] 1 tablet (50 mcg total) by mouth soyfreeze operator before breakfast 90 tablet 3 4 Active [...] decision),09/13/2022(Deferred: Patient Refused),09/12/2021(Deferred: Patient Refused) Tdap 12/10/2014 Surgical History Surgery Date Site/Laterality Comments TYMPANOSTOMY TUBE PLACEMENT 11/09/2002 - 11/08/2003 Ear Pressure Equalization Tube, Insertion, Bilaterally - (Added by TW Conv) [place] TYMPANOPLASTY W/O MASTOIDECT W/O OSSICLE RECNSTJ 11/09/2008 - 11/08/2009 Tympanoplasty - (Added by TW Conv) Medical History Medical History Date Comments Obesity Family History Medical History Relation Name Comments Arthritis Father Family history of arthritis - (Added by TW Conv) Hypertension Father Arthritis Mother Family history of arthritis - (Added by TW Conv) Diabetes Mother Heart disease Mother Family history of cardiac disorder - (Added by TW Conv) Hypertension Mother Allergies Other 1 Environmental a llergies - (Added by TW Conv) Congenital heart disease Other 2 Fam marely history of congenital heart disease - (Added by TW Conv) Hypertension Other 3 Family history of hypertension - (Added by TW Conv) Relation Name Status Comments Father Alive Mother Alive Other 1 Other 2 Other 3 Social History Tobacco Use Types Packs/Day Years [...] on file 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 Gender Identity Female 03/18/2021 10:15 AM CDT Sexual Orientation Straight 03/18/2021 10 :15 AM CDT 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 Not on file Obstetrics History Para Term AB IAB SAB Ectopic Multiple Livin g Live Births 0 0 0 0 0 0 0 0 0 0 0 Last Filed Vital Signs Vital Sign Reading [...] 08/24/2024 12:49 PM CDT Plan of Treatment Health Maintenance Due Date Last Done Comments DTaP/Tdap/Td Vaccine (2 - Td or Tdap) 12/10/2024 12/10/2014 Depression Screening 04/21/2025 04/21/2024, 02/17/2024, 10/13/2022, Additional history exists Cervical Cancer Screening 04/22/2025 04/22/2024, Regular Well Visit/Exam 18-64 04/22/2025 04/22/2024, 02/17/2024, 10/13/2022, Additional history exists Influenza Vaccine (Season Ended) 2025 Pneumococcal vaccine <65 (1 of 2 - PCV) 08/09/2025 Postponed from 2016 (Patient declined, but will receive in the future) Hepatitis B Screening Completed 02/17/2024 Hepatitis C Screening Completed 02/17/2024 HPV Vaccines Aged Out No longer eligi ble based on patient's age to complete this topic Varicella Vaccines Discontinued Procedures Procedure Name Priority Date/Time Associated Diagnosis [...] PATHOLOGY CH - 04/27/2024 2:26 PM CDT [facility] Department of Pathology [address] [place] [id number] Final Report Note to Patients: This report [...] the details. Patient Name: GENET MAYO Address: [address] [facility], [place] [address] Gender: F : 1995 (Age: 28) Service: Location: Hospital #: [id number] Patient Type: AMH SPECIMEN Taken: 04/22/2024 Received: 04/22/2024 Accessioned:: 04/25/2024 Reported: 04/27/2024 Physician(s): MD Cici Max MD Diagnosis: SOURCE OF SPECIMEN Imaged Thinprep Pap Test w/ Reflex HPV - Private Eye Cytologic Material: STATEMENT OF ADEQUACY - Satisfactory for evaluation; endocervical/transformation zone component present GENERAL CATEGORIZATION: - Negative for intraepithelial lesion or malignancy TAMMY Bartlett(ASCP) Report Electronically Reviewed and Signed Out By TAMMY Bartlett(ASCP) 04/27/2024 14:26:33Specimen(s) Received: A: Imaged Thinprep Pap Test w/ Reflex HPV - Private Eye Cytologic Material Clinical History: Last Menstrual Period: [...] determined by the Surgical Pathology Department at [facility] as part of an ongoing quality control microbiology supervisor program and in compliance with federally mandated [...] characteristics determined by the Surgical Pathology Department [facility]. It has not been cleared or approved by the U. S. Food and Drug Administration. Cici Manzo MD LAB CYTOLOGY ORDERABL ES Final Result Performing Organization Address City/State/[facility] Co de Phone Number PATHOLOGY [phone] [place] [address] * Hepatitis C antibody Blood (02/17/2024 8:46 [...] MICROBIOLOGY - GENER AL ORDERABLES Final Result Performing Organization Address City/[facility] Co de Phone Number ANA [phone] [facility] Department [place] [address] from Last 3 Months or Most Recently Relevant to Health Maintenance Insurance [facility] Care Teams Food Processing Scientist Relationship Specialty Start Date End Date Suhas Jerry DO [address] [place] [phone] PCP - General Family Medicine 01/17/21
[2025-04-02 09:37] VITALS: BP 134/90; PULSE 68; RESP 20; TEMP 36.7; O2SAT 100
[2025-04-02 09:51] LABS: BEDSIDEPREGUCG Negative (Negative)
--- NOTE | 2025-04-02 09:56 | ED_ITS ---
HPI - General Adult General Chief complaint: Back Pain/Injury Stated complaint: r/o kidney infection Time Seen by Provider: 04/02/25 09:48 History of Present Illness HPI narrative: 29-year-old female presenting to the emergency department for evaluation for right flank pain. Patient states she has had some intermittent right flank pain over the course of the last 2 weeks but contributed to more of a muscular injury. Patient began having urinary symptoms yesterday did present to Urgent Care and was diagnosed with urinary tract infection and started on Macrobid. Patient states she did take at least 2 doses of this medication. Patient states that her right flank pain has worsened since she was evaluated yesterday. Patient did take Tylenol and cyclobenzaprine for this pain but upon arrival to the emergency department patient does appear to be in discomfort. Patient does report associated nausea. Patient was told she does have kidney stones from a previous CT scan. Related Data Allergies Allergy/AdvReac Type Severity Reaction Status Date / Time doxycycline Allergy Rash Verified 04/02/25 09:42 Review of Systems 2 Review of Systems: All systems reviewed & are unremarkable except as noted in HPI and below PMFSH Past Medical History Medical History History of asthma Surgical History Surgical History History of tympanoplasty Social History Social History Smoking status: Current every day smoker Tobacco type: e-cigarettes/vaping Exam 2 Narrative: APPEARANCE: Uncomfortable appearing HEAD: normocephalic, atraumatic. EYES: PERRLA/EOMI, conjunctivae clear. NOSE: Normal no drainage EARS:TMS clear with good light reflex. THROAT: Pharynx clear, no exudate. NECK: Supple. No adenopathy, no masses. RESPIRATORY: Airway patent, respirations nonlabored. Clear to auscultation bilaterally, no rales, rhonchi, wheezing. CARDIOVASCULAR: Regular rate and rhythm without murmurs rubs or gallops. ABDOMINAL: Right CVA tenderness to palpation MUSCULOSKELETAL: Moves all extremities. Strength/ROM intact, No edema, No calf tenderness. NEURO: Alert. Cranial nerves II through XII intact. Good gait. Good coordination SKIN: Warm, dry. Normal Color Course Vital Signs Vital signs: Vital Signs Temperature 98.0 F 04/02/25 09:37 Pulse Rate 68 04/02/25 09:37 Respiratory Rate 20 04/02/25 09:37 Blood Pressure 134/90 04/02/25 09:37 Pulse Oximetry 100 04/02/25 09:37 Oxygen Delivery Room Air 04/02/25 09:37 Temperature 98.0 F 04/02/25 09:37 Pulse Rate 66 04/02/25 11:17 Respiratory Rate 18 04/02/25 11:17 Blood Pressure 123/84 04/02/25 11:17 Pulse Oximetry 100 04/02/25 11:17 Oxygen Delivery Room Air 04/02/25 09:37 Medical Decision Making MDM Narrative Medical decision making narrative: 29-year-old female presents to the emergency department for evaluation for right flank pain. Patient is currently afebrile with no leukocytosis and hemoglobin of 15. Patient's creatinine is 1.1. Patient's urine was nitrate positive leukocyte esterase positive. Patient is currently taking Macrobid. Patient does have blood in her urine as well. Previous CT scans does show evidence nephrolithiasis. Patient CT scan does show a 4 mm ureteral calculi at the level of the UVJ. Patient had initially been treated with IV Dilaudid IV Zofran and did feel some improvement. With the CT scan showing a 4 mm stone at the UVJ patient was also treated with additional IV Toradol and patient's symptoms did resolve. Patient family updated the results of the workup and plan for treatment for home. Differential Diagnosis Differential Diagnosis: Urinary tract infection, colitis, diverticulitis, ureteral stone Vital Signs Vital Signs: Vital Signs Temperature 98.0 F 04/02/25 09:37 Pulse Rate 68 04/02/25 09:37 Respiratory Rate 20 04/02/25 09:37 Blood Pressure 134/90 04/02/25 09:37 Pulse Oximetry 100 04/02/25 09:37 Oxygen Delivery Room Air 04/02/25 09:37 Temperature 98.0 F 04/02/25 09:37 Pulse Rate 66 04/02/25 11:17 Respiratory Rate 18 04/02/25 11:17 Blood Pressure 123/84 04/02/25 11:17 Pulse Oximetry 100 04/02/25 11:17 Oxygen Delivery Room Air 04/02/25 09:37 Lab Data Lab results reviewed: Yes I reviewed the patient's lab results. 04/02/25 09:50 04/02/25 09:50 Labs: Lab Results 04/02/25 04/02/25 04/02/25 Range/Units 09:49 09:50 09:51 WBC 9.2 (4.5-10.0) K/mm3 RBC 4.97 (4.2-5.4) M/mm3 Hgb 15.0 (12.0-15.0) g/dL Hct 43.7 (37.0-47.0) % MCV 87.9 (80-100) fl MCH 30.2 (26-34) pg MCHC 34.3 (32-36) g/dl RDW 11.6 (11.5-14.5) % Plt Count 277 (150-375) k/mm3 MPV 10.2 (7.4-10.4) fl Immature Gran % (Auto) 0.3 (0-0.5) % Neut % (Auto) 52.1 (45.5-73.1) % Lymph % (Auto) 38.8 (18.3-44.2) % [place] % (Auto) 8.1 (2.6-8.5) % Eos % (Auto) 0.2 (0-4.4) % Baso % (Auto) 0.5 (0.2-1.2) % Lymph # (Auto) 3.57 H (0.9-3.2) K/mm3 [place] # (Auto) 0.7 H (0.1-0.6) K/mm3 Eos # (Auto) 0.0 (0-0.3) K/mm3 Baso # (Auto) 0.1 (0.0-0.1) K/mm3 Abs Immat Gran (auto) 0.03 (0.00-0.031) K/mm3 Absolute Neuts (auto) 4.8 (1.3-6.7) K/mm3 Absolute Nucleated RBC 0.000 (0.0-0.012) K/mm3 Nucleated RBC % 0.0 (0.0-0.2) % Sodium 137 (137-145) mmol/L Potassium 3.8 (3.4-5.0) mmol/L Chloride 101 (98-107) mmol/L Carbon Dioxide 24 (22-30) mmol/L Anion Gap 12 (4-12) mmol/L BUN 12 (7-17) mg/dL Creatinine 1.11 H (0.7-1.0) mg/dL Estim Creat Clear Calc 83 ml/min Estimated GFR 59 (59 - ) Glucose 93 (65-110) mg/dL Calcium 9.4 (8.4-10.2) mg/dL Total Bilirubin 0.6 (0.2-1.3) mg/dL AST 35 (14-36) U/L ALT 25 (6-35) U/L Alkaline Phosphatase 48 (38-126) U/L Total Protein 8.0 (6.3-8.2) g/dL Albumin 4.5 (3.5-5.1) g/dL Urine Color Dark yellow (Yellow) Urine Appearance Clear (Clear) Urine pH 6.0 (5.0-9.0) Ur Specific [place] 1.007 (1.001-1.035) Urine Protein Negative (Negative) mg/dL Urine Glucose (UA) Negative (Negative) mg/dL Urine Ketones 1+ H (Negative) mg/dL Ur Blood (Man) 1+ H (Negative) Urine Nitrate Positive H (Negative) Urine Bilirubin Negative (Negative) Urine Urobilinogen 1.0 (<2.0) mg/dL Add Ur Microanalysis Need manual Leukocyte Esterase Rfl Trace H (Negative) JULIA/UL Urine RBC 6-10 H (0-2) /hpf Urine WBC 0-5 (0-3) /hpf Ur Squamous Epith Cells None seen (Few) /hpf Urine Bacteria None seen /hpf Urine Casts 0-2 POC Urine HCG, Qual Negative (Negative) Imaging Data Radiologist's impression: Impressions Abdomen/Pelvis CT 04/02/25 11:16 IMPRESSION: Right-sided hydroureteronephrosis secondary to a 4 mm calculus at the level of the distal right ureter/right UVJ. Nonobstructing calculus within the upper pole of the left kidney. Discharge Plan Discharge Clinical Impression: Calculi, ureter Patient Disposition: Home Condition: Stable Instructions: Antibiotic Form, Kidney Stones (ED), How to Strain Your Urine (ED), Flank Pain (ED) Additional Instructions: Ibuprofen for pain control. Castor as needed for additional pain control. Flomax as directed to help you pass the stone. Zofran as needed for nausea control. Strain your urine as instructed. Have close follow-up with Urology. If you have any worsening symptoms and please call or return to the emergency department. Patient Language: Armenian Prescriptions: New hydrocodone-acetaminophen 5-325 mg tablet 1 tablet PO Q12H PRN (Reason: pain) Qty: 14 0RF tamsulosin [Flomax] 0.4 mg capsule 0.4 mg PO DAILY 7 Days Qty: 7 0RF ondansetron 4 mg tablet,disintegrating 4 mg PO Q8H PRN (Reason: nausea and vomiting) Qty: 14 0RF No Action ciprofloxacin-dexamethasone 0.3-0.1 % drops,suspension 4 drp RIGHT EAR Q12H 7 Days Qty: 7.5 0RF nitrofurantoin monohyd/m-cryst [Macrobid] 100 mg capsule 100 mg PO Q12H 5 Days Qty: 10 0RF Rx Instructions: must administer with a meal/food doxycycline hyclate 100 mg capsule 100 mg PO BID 5 Days Qty: 10 0RF albuterol sulfate 90 mcg/actuation HFA aerosol inhaler 1 inh inhalation QID Qty: 8.5 0RF Follow-up/Referrals: Rosalino,Suhas Lee MD [Primary Care Provider] - Sal Brooke MD [Physician] -
[2025-04-02 09:58] LABS: Basophils Absolute Auto 0.1 K/mm3 (0.0-0.1); Basophils Percent Auto 0.5 % (0.2-1.2); Eosinophils Percent Auto 0.2 % (0-4.4); Hematocrit 43.7 % (37.0-47.0); Immature Granulocyte Absolute 0.03 K/mm3 (0.00-0.031); Immature Granulocyte Percent A 0.3 % (0-0.5); Lymphocytes Absolute Auto 3.57 K/mm3 (0.9-3.2); Lymphocytes Percent Auto 38.8 % (18.3-44.2); Mean Corpuscular HGB Conc 34.3 g/dl (32-36); Mean Corpuscular Hemoglobin 30.2 pg (26-34); Mean Corpuscular Volume 87.9 fl (80-100); Mean Platelet Volume 10.2 fl (7.4-10.4); Monocytes Absolute Auto 0.7 K/mm3 (0.1-0.6); Monocytes Percent Auto 8.1 % (2.6-8.5); Neutrophils Absolute Auto 4.8 K/mm3 (1.3-6.7); Neutrophils Percent Auto 52.1 % (45.5-73.1); Platelet Count Result 277 k/mm3 (150-375); Red Blood Count 4.97 M/mm3 (4.2-5.4); Red Cell Distribution Width 11.6 % (11.5-14.5); White Blood Count 9.2 K/mm3 (4.5-10.0)
--- OUTSIDE RECORDS SUMMARY | 2025-04-02 10:00 | XMS_ITS | Clinical Summary ---
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 Gender Identity Female 03/18/2021 10:15 AM CDT [...] CH - 04/27/2024 2:26 PM CDT [facility] Department of Pathology [address] [place] [id number] Final Report Note to Patients: This [...] Patient Name: GENET MAYO Address: [address] [facility], [place] [address] Gender: F : 1995 (Age: 28) Service: Location: Hospital #: [id number] Patient Type: [facility] SPECIMEN Taken: 04/22/2024 Received: 04/22/2024 Accessioned:: 04/25/2024 Reported: 04/27/2024 Physician(s): MD Cici Max MD Diagnosis: SOURCE OF SPECIMEN Imaged Thinprep Pap Test w/ Reflex HPV - Cobol Mainframe Developer Cytologic Material: STATEMENT OF ADEQUACY - Satisfactory for evaluation; endocervical/transformation zone component present GENERAL CATEGORIZATION: - Negative for intraepithelial lesion or malignancy TAMMY Bartlett(ASCP) Report Electronically Reviewed and Signed Out By TAMMY Bartlett(ASCP) 04/27/2024 14:26:33Specimen(s) Received: A: Imaged Thinprep Pap Test w/ Reflex HPV - Cobol Mainframe Developer Cytologic Material Clinical History: Last Menstrual Period: [...] by the Surgical Pathology Department at [facility] as part of an ongoing quality assurance monitor final program and in compliance with federally mandated [...] ORDERABL ES Final Result Performing Organization Address City/State/[facility] Co de Phone Number PATHOLOGY [address] [place] [address] * Hepatitis C antibody Blood (02/17/2024 8:46 [...] AL ORDERABLES Final Result Performing Organization Address City/[facility] Co de Phone Number ANA [address] [facility] Department [place] [address] from Last 3 Months or Most Recently Relevant to Health Maintenance Insurance [employer] [facility] Care Teams Control Valve Technician Relationship Specialty Start Date End Date Suhas Jerry DO [address] [place] [phone] PCP - General Family Medicine 01/17/21
--- OUTSIDE RECORDS SUMMARY | 2025-04-02 10:00 | XMS_ITS | Referral Summary ---
Author Organization 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 Department of Pathology [address] [place] [address] Final Report Note to Patients: This report [...] the details. Patient Name: GENET MAYO Address: [address] [place] [address], [place] [address] Gender: F : 1995 (Age: 28) Service: Location: N : [id number] [facility] #: [id number] Patient Type: [facility] SPECIMEN Taken: 04/22/2024 Received: 04/22/2024 Accessioned:: 04/25/2024 Reported: 04/27/2024 Physician(s): MD Cici Max MD Diagnosis: SOURCE OF SPECIMEN Imaged Thinprep Pap Test w/ Reflex HPV - Lithographic Press Operator Cytologic Material: STATEMENT OF ADEQUACY - Satisfactory for evaluation; endocervical/transformation zone component present GENERAL CATEGORIZATION: - Negative for intraepithelial lesion or malignancy TAMMY Bartlett(ASCP) Report Electronically Reviewed and Signed Out By TAMMY Bartlett(ASCP) 04/27/2024 14:26:33Specimen(s) Received: A: Imaged Thinprep Pap Test w/ Reflex HPV - Lithographic Press Operator Cytologic Material Clinical History: Last Menstrual Period: [...] determined by the Surgical Pathology Department at [facility] as part of an ongoing quality control lab technician program and in compliance with federally mandated [...] characteristics determined by the Surgical Pathology Department [facility]. It has not been cleared or approved by the [place]. S. Food and Drug Administration. Cici Manzo MD LAB CYTOLOGY ORDERABL ES Final Result PATHOLOGY [address] [place] [address] * Hepatitis C antibody Blood (02/17/2024 8:46 [...] - GENER AL ORDERABLES Final Result ANA [address] [facility] Department of Laboratories [place], [place] [phone] from Last 3 Months or Most Recently Relevant to Health Maintenance Insurance [facility] [employer] Care Teams Open Claims Representative Relationship Specialty Start Date End Date Suhas Jerry DO [address] [place] [phone] PCP - General Family Medicine 01/17/21
[2025-04-02 10:07] LABS: Alanine Aminotransferase 25 U/L (6-35); Albumin Level 4.5 g/dL (3.5-5.1); Alkaline Phosphatase 48 U/L (38-126); Anion Gap 12 mmol/L (4-12); Aspartate Amino Transferase 35 U/L (14-36); Bilirubin,Total 0.6 mg/dL (0.2-1.3); Blood Urea Nitrogen 12 mg/dL (7-17); Calcium 9.4 mg/dL (8.4-10.2); Carbon Dioxide 24 mmol/L (22-30); Chloride 101 mmol/L (98-107); Estimated CRCL calculation 83 ml/min; Estimated Glomerular Filt Rate 59; Glucose 93 mg/dL (65-110); Potassium 3.8 mmol/L (3.4-5.0); Sodium 137 mmol/L (137-145)
[2025-04-02] MEDS: HYDROmorphone HCL INJ (*CRX) 2 MG/ML VIAL 1 MG IV PUSH (10:09)
[2025-04-02] MEDS: ONDANSETRON INJ 4 MG/2 ML VIAL IV PUSH (10:09)
[2025-04-02] MEDS: LACTATED RINGERS 1,000 ML 999 ML IV CONT (10:12)
[2025-04-02 10:15] LABS: Add Urine Microscopic? YES; Appearance Urine Clear (Clear); Bacteria Urine None Seen /hpf; Bilirubin Urine Negative (Negative); Blood Urine 1+ (Negative); Color Urine Dark Yellow (Yellow); Glucose Urine UA Negative (Negative); Ketones Urine 1+ mg/dL (Negative); Leukocyte Esterase Ur Trace LEU/UL (Negative); Need Manual Microscopic Need Manual; Nitrate Urine Positive (Negative); Non Pathogenic Casts 0-2; Protein Urine Negative (Negative); Specific Grav Ur 1.007 (1.001-1.035); Squamous Epithelial Cell Urine None Seen /hpf (Few); WBC Urine 0-5 /hpf (0-3)
[2025-04-02 10:16] VITALS: BP 128/95; PULSE 69; RESP 20; O2SAT 100
[2025-04-02 11:17] VITALS: BP 123/84; PULSE 66; RESP 18; O2SAT 100
[2025-04-02] MEDS: KETOROLAC 30 MG/ML VIAL (*BKC) IV PUSH (11:31)
== END 2025-04-02 12:34 | disposition home or self-care (01) ==
PROVIDERS: Emergency Provider Emergency Medicine; PCP Family Medicine
DX: N20.1 Calculus of ureter (principal); J45.909 Unspecified asthma, uncomplicated
CPT/HCPCS: 36415; 74176; 80053; 81001; 81025; 85025; 87086; 96361; 96374; 96375; 99284; J1171; J1885; J2405; J7120